=== PATIENT | female | born 1985 | race Caucasian/White ===

== ENCOUNTER → 2016-12-16 | Outpatient (CLI) | payer OTHER ==
--- NOTE | 2016-12-16 15:32 | US ---
December 16, [address] Blount, Thank you for requesting a ultrasound to evaluate anatomy for your patient, Mrs. Jacy mcintyre. As you know, Gopal is a 31 year old G 2, P 1001 with a brewer dating 18 w 4 d; JACQUELINE of 05/15/17 by LMP and 12 week ultrasound. Aneuploidy screening was performed. She had a reassuring First Trimester screen. Her second blood draw has yet to be performed for Sequential screening. He r first delivered vaginally with a 4 th degree laceration. She is a planned secti on for this . ULTRASOUND Number of fetuses: 1 Placental location: Anterior; no evidence of previa Placental cord insertion: Intraplacental presentation: Breech Cervix: 3.7 cm viewed transabdominally Maximum Vertical Pocket: 5.2 cm The adnexa were evaluated. No pathology was seen. Right ovary is visualized and seen as normal. It measures 2.1 x 1.6 x 1.8 cm. Left ovary is visualized and seen as normal. It measures 1.8 x 1.3 x 1.7 cm. MEASUREMENTS: Biparietal diameter: 43 mm 19 weeks, 1 days Head circumference: 153 mm 18 weeks, 3 days Abdominal circumference: 133 mm 18 weeks, 4 days Femur length: 27 mm 18 weeks, 1 days Humerus length: 25 mm 18 weeks, 0 days Transcerebellar diameter: 19 mm 18 weeks, 6 days Average ultrasound age: 18 weeks, 5 days Estimated weight: 241 gm weight percentile: 39% ANATOMY Supratentorial brain: Normal including views of the falx, cavum septum pellucidum and choroids Lateral Ventricle: Normal, measuring 5.6 mm Posterior fossa: Normal including the cerebellum and cisterna magna Spine: Normal axial views; suboptimal sagittal view secondary to position Nuchal fold: 3.8 mm normal Face: Normal views of the lip and nose area Profile: Normal Palate: Normal appearance of the alveolar ridge Heart: Four Chamber View: Normal including the intraventricular Septum LVOT: Normal RVOT: Normal 3VV: Normal Tracheal View: Normal Aortic Arch: Seen Ductal Arch: Seen SVC/IVC: Seen Heart Rate 142 bpm Diaphragm: Normal appearance without overt abnormality detected Stomach: Normal Umbilical cord insertion: Normal Right kidney: Normal Left kidney: Normal Bladder: Normal Number of cord vessels: Three Upper extremities: Normal Lower extremities: Normal Gender: Female IMPRESSION: 1. Intrauterine at 18 w 4 d, ultrasound is consistent with her established JACQUELINE of 05/15/17 . 2. Normal anatomical survey. 3. Cervical length is normal at 3.7 cm without evidence of insufficiency. RECOMMENDATIONS: I was pleased to review today's ultrasound with your patient, Gopal. I reassured her that the baby is growing appropriately with normal amniotic fluid volume. Our detailed review of the anatomy did not reveal any overt abnormalities. Future ultrasound and consultation is left to your clinical discretion. Thank you for allowing us the opportunity to evaluate your patient. Should you have any further ques tions or concerns please do not hesitate to contact me. Low risk; no E&M. Pao Savage MD [employer] Faculty Member Maternal Medicine Diagnosis Department of Obstetrics & Gynecology [facility]
--- NOTE | 2016-12-16 17:08 | US ---
OB Sonogram History: 18 weeks 4 days, check growth and anatomy, JACQUELINE May 15, 2017 Comparison: November 04, 2016 Findings: The fetus is in breech presentation. The cervix is closed measuring 3.7 cm transabdominally . The placenta is anterior without previa. The umbilical cord inserts normally into the placenta. Max imum amniotic fluid pocket = 5.2 cm. Both maternal ovaries are normal. Visualized intracranial contents, face and spine look normal. 4 extremities a re present. The heart is 4 chambered and has a rate of 142 bpm, within normal right and left ve ntricular outflow tract and interventricular septum. Fluid is identified in the stomach and fet al urinary bladder. The renal region looks grossly normal. The umbilical cord has 3 vessels and a normal insertion site. BPD = 43 mm = 19 weeks 1 day. Head circumference = 153 mm = 18 weeks 3 days Abdominal circumference = 133 mm = 18 weeks 6 days Femur length = 27 mm = 18 weeks 1 day Humeral length = 25 mm = 18 weeks 0 days Cerebellar width = 19 mm = 18 weeks 6 days Cisterna magna = 2.6 mm Estimated weight = 39 percentile Average gestational age by ultrasound 18 weeks 5 days JACQUELINE by ultrasound May 14, 2017 Impression: Size consistent with dates. This report should be read in conjunction with a consultation by Dr. Pao Savage.
== END ==
LOC: FIMAGING 13:59
PROVIDERS: ATTEND Student in an Organized Health Care Education/Training Program
DX: Z34.92 Encounter for supervision of normal pregnancy, unspecified, second trimester (principal); Z3A.18 18 weeks gestation of pregnancy